=== PATIENT | female | born 1970 | race Caucasian/White ===

== ENCOUNTER → 2020-01-14 | Outpatient (CLI) | payer OTHER ==
[~2020-01-14] MED LIST: CALC.25; HYDACE5; PENVK500
[2020-01-16 15:10] LABS: HPV 16 Negative (Negative); HPV 18 Negative (Negative); HPV OTHER HR TYPES Negative (Negative)
== END | disposition home or self-care (01) ==
LOC: LAB 10:50 → LAB SHORT 10:50
PROVIDERS: Obstetrics & Gynecology
DX: Z01.419 Encounter for gynecological examination (general) (routine) without abnormal findings (principal)
CPT/HCPCS: 87624; G0123

== ENCOUNTER → 2020-02-20 | Outpatient (CLI) | payer OTHER | END | disposition home or self-care (01) | LOC: LAB SHORT 07:58 → PLD 07:58 | DX: N92.4 Excessive bleeding in the premenopausal period (principal) | CPT/HCPCS: 88305 ==

== ENCOUNTER 2020-03-20 06:06 | Day surgery (SDC) | payer OTHER ==
[~2020-03-20] VITALS: Ht 160 cm; Wt 91.8 kg
[~2020-03-20 06:06] MED LIST changes: +Caltrate-600 W1 EACH PO; +EUTHYROX175 MCG PO; +IBUP800 PO; +IRON PO; +Lisinopril10 MG PO; +METO25 PO; +OMEP20ER PO; +ONDA4 PO; +Percocet 5-3251 EACH PO; +TUMS500 MG PO
--- NOTE | 2020-03-20 07:05 | NUR ---
Ambulatory in Day Surgery. History, Chart, Medications and Allergies reviewed before start of procedure.Patient confirms NPO status and agrees with scheduled surgery. Patient reports completing Chlorhexadine shower X2 prior to admission to hospital.Surgical site prepped with 2% Chlorhexidine cloth wipe. Lungs clear T/O to Auscultation. Patient States Post-Procedure ride home has been arranged WITH [facility]. PT GLASSES WILL BE TAKEN TO PACU.
--- NOTE | 2020-03-20 11:22 | NUR ---
PT ARRIVED TO UNIT AT APROX 1100 FROM PACU. LAP SITES X'S 4 C/D/I COVERED IN GAUZE AND TAPE. PT DENIES PAIN AT THIS TIME. DENIES N/V SO PT GIVEN CLEAR LIQUIDS AND CRACKERS, WILL ADVANCE TOLERATED. PLAN IS FOR EXTENDED RECOVER AND PT CAN DC THIS AFTERNOON IF MEETS ALL DC CRITERIA.
--- NOTE | 2020-03-20 15:53 | NUR ---
DISCHARGE PT DISCHARGED HOME FROM UNIT AT APROX 1530. PT GIVEN WRITTEN AND VERBAL DISCHARGE INSTRUCTIONS AND VERBALIZED UNDERSTANDING OF THESE INSTRUCTIONS. IV REMOVED, PT TOLERATED WELL. WHEELCHAIR TO CAR.
== END 2020-03-20 14:00 | disposition home or self-care (01) ==
LOC: ORSCMMR 06:06 → ORD 07:30 → SURS 10:57 → ORSCMMR 14:00
PROVIDERS: Obstetrics & Gynecology
PROC: 0UT74ZZ Resection of Bilateral Fallopian Tubes, Percutaneous Endoscopic Approach (ICD-10-PCS; principal; 2020-03-20 07:30)
PROC: 0UT94ZZ Resection of Uterus, Percutaneous Endoscopic Approach (ICD-10-PCS; principal; 2020-03-20 07:30)
PROC: 8E0W4CZ Robotic Assisted Procedure of Trunk Region, Percutaneous Endoscopic Approach (ICD-10-PCS; principal; 2020-03-20 07:30)
DX: N92.0 Excessive and frequent menstruation with regular cycle (principal); N84.0 Polyp of corpus uteri; D25.9 Leiomyoma of uterus, unspecified; N83.8 Other noninflammatory disorders of ovary, fallopian tube and broad ligament; I10 Essential (primary) hypertension; K21.9 Gastro-esophageal reflux disease without esophagitis; E03.9 Hypothyroidism, unspecified; E66.9 Obesity, unspecified; Z68.35 Body mass index [BMI] 35.0-35.9, adult; Z79.899 Other long term (current) drug therapy
CPT/HCPCS: 58571; S2900; 86850; 86900; 86901; 88307; J0690; J1100; J1885; J2250; J2405; J2704; J2710; J3010; J7120